=== PATIENT | female | born 1955 | race Two or more races ===

== ENCOUNTER 2018-08-02 23:36 | Inpatient (IN) | payer OTHER ==
[~2018-08-02] VITALS: Ht 167.6 cm; Wt 87.4 kg
[2018-08-03] MEDS ORDERED: SODIUM CHLORIDE 0.9% 500 ML IV ONE ×2 (00:03→01:15)
[2018-08-03 00:20] LABS: Basophils # (auto) 0.1 uL; Basophils % (auto) 0.7 % (0.0-2.0); Eosinophils # (auto) 1.6 uL; Hematocrit 38.1 % (36.0-46.0); Hemoglobin 12.2 g/dL (12.2-16.2); Lymphocytes # (auto) 6.6 uL; Lymphocytes % (auto) 46.2 % (10.0-50.0); Mean Corpuscular Hemoglobin 32.1 pg (28.0-32.0); Mean Corpuscular Volume 100.5 fL (80.0-100.0); Monocytes % (auto) 6.9 % (0.0-12.0); Neutrophils % (auto) 35.2 % (37.0-80.0); Nucleated Red Blood Cells % 0.1 %; Platelet Count (auto) 534 10^3/uL (140-450); Red Blood Cells 3.79 10^6/uL (4.0-5.20); Red Cell Distribution Width 13.6 % (11.8-14.3); White Blood Cell 14.3 10^3/uL (4.4-10.8)
[2018-08-03 00:39] LABS: INR 0.88 (0.9-1.15); Partial Thromboplastin Time 25.7 sec (23.78-33.04); Prothrombin Time 9.5 sec (9.27-12.13)
[2018-08-03 00:45] LABS: Albumin 2.9 g/dL (3.4-5.0); Anion Gap 17 (5-15); Blood Urea Nitrogen 45 mg/dL (7-18); Calcium 8.3 mg/dL (8.5-10.1); Carbon Dioxide 16 mmol/L (21-32); Chloride 108 mmol/L (98-107); Magnesium 2.5 mg/dL (1.6-2.6); Potassium 3.7 mmol/L (3.5-5.1); Sodium 141 mmol/L (136-145)
[2018-08-03] MEDS ORDERED: LEVOFLOXACIN 500MG 100 ML IV ONE (00:45)
[2018-08-03 00:47] LABS: Alanine Aminotransferase 67 U/L (13-56); Aspartate Aminotransferase 117 U/L (15-37); Bilirubin, Total 0.2 mg/dL (0.2-1.0); GFR African American 14 mL/min; GFR Non-African American 12 mL/min; Total Protein 6.5 g/dL (6.4-8.2)
[2018-08-03 00:50] LABS: BUN/Creatinine Ratio 11.2
[2018-08-03 00:52] LABS: Glucose 578 mg/dL (74-106)
[2018-08-03 00:54] LABS: Alkaline Phosphatase 146 U/L (45-117)
[2018-08-03] MEDS ORDERED: DOPamine 1600MCG/ML D5W 250 ML IV ONE ×2 (01:15→04:28)
[2018-08-03] MEDS ORDERED: InsuLIN REG 1unit/0.01ml Soln (100units/ml) IV ONE (01:15)
[2018-08-03] MEDS ORDERED: InsuLIN R (HUMAN) 100 UNITS in SODIUM CHL 0.9% 99 ML IV SCH (03:01)
[2018-08-03] MEDS ORDERED: DEXTROSE (50%) 50ML SYRG IV PRN ×2 (03:15)
[2018-08-03] MEDS ORDERED: CALCIUM CHL 100MG/ML 500 MG in D5W 5% 100 ML IV ONE (03:15)
[2018-08-03] MEDS ORDERED: ACCU-CHEK COMFORT CURVE STRIP VI SCH ×2 (04:30→06:00)
[2018-08-03 05:11] LABS: Urine Bacteria MANY /hpf (None Seen); Urine Blood TRACE /uL (Negative); Urine Mucus FEW (None Seen); Urine WBC 15 /hpf (0 - 5); Urine WBC Clumps PRESENT /hpf (None Seen)
[2018-08-03 05:26] LABS: Calcium 8.5 mg/dL (8.5-10.1); Potassium 4.3 mmol/L (3.5-5.1)
[2018-08-03 05:26] LABS: Alcohol, Urine < 3.0 mg/dL (0-5); Amphetamine Screen, Urine NEGATIVE (NEGATIVE); Barbiturate Scree,Urine NEGATIVE (NEGATIVE); Benzodiazephine Screen, Urine NEGATIVE (NEGATIVE); Cannabinoid Screen, Urine NEGATIVE (NEGATIVE); Cocaine Screen, Urine NEGATIVE (NEGATIVE); Opiate Scree,Urine NEGATIVE (NEGATIVE); Phencyclidine Screen, Urine NEGATIVE (NEGATIVE)
[2018-08-03 05:28] LABS: BUN/Creatinine Ratio 15.7
[2018-08-03 05:57] LABS: Blood Alcohol < 3.0 mg/dL (0-5)
[2018-08-03 06:23] LABS: Lactic Acid w/Reflex 2.5 mmol/L (0.4-2.0)
[2018-08-03] MEDS: InsuLIN REG 1unit/0.01ml Soln (100units/ml) SC SCH ×5 (06:58→22:11)
[2018-08-03] MEDS: DOPamine 1600MCG/ML D5W 250 ML IV SCH ×2 (07:00→21:00)
[2018-08-03] MEDS: cefTRIAXone 1GM/50ML D5W 50 ML IV SCH (08:09)
[2018-08-03] MEDS: cloNIDine HCL 0.1 MG TAB PO PRN ×2 (08:09→22:11)
[2018-08-03] MEDS ORDERED: ISOS1TAB PO (11:06)
[2018-08-03] MEDS ORDERED: FENO1TAB42 PO (11:06)
[2018-08-03] MEDS ORDERED: ISOS5TAB20 PO (11:06)
[2018-08-03] MEDS ORDERED: B-COTAB10 PO (11:06)
[2018-08-03] MEDS ORDERED: FURO40TA PO (11:06)
[2018-08-03] MEDS ORDERED: FERR-20 PO (11:07)
[2018-08-03] MEDS ORDERED: NIFE90TA30 PO (11:07)
[2018-08-03] MEDS ORDERED: RANI1TAB6 PO (11:09)
[2018-08-03] MEDS ORDERED: INSLANTI SC (11:09)
[2018-08-03] MEDS ORDERED: INSUINJ18 SC (11:13)
[2018-08-03] MEDS ORDERED: ASPirin 81 mg TAB PO ONE (12:15)
[2018-08-03 13:03] LABS: Cholesterol 167 mg/dL (< 200); HDL Cholesterol 57 mg/dL (40-59); LDL Cholesterol 98 mg/dL (< 100); Triglycerides 88 mg/dL (< 150)
[2018-08-03] MEDS: ACCU-CHEK COMFORT CURVE STRIP VI SCH ×2 (18:05→22:11)
[2018-08-04 05:46] LABS: Basophils # (auto) 0 uL; Basophils % (auto) 0.6 % (0.0-2.0); Hematocrit 34.5 % (36.0-46.0); Hemoglobin 11.8 g/dL (12.2-16.2); Lymphocytes % (auto) 27.9 % (10.0-50.0); Mean Corpuscular Hemoglobin 32.8 pg (28.0-32.0); Mean Corpuscular Hgb Conc. 34.2 g/dL (32.0-36.0); Mean Corpuscular Volume 96.1 fL (80.0-100.0); Monocytes # (auto) 0.7 uL; Monocytes % (auto) 9.2 % (0.0-12.0); Neutrophils # (auto) 3.6 uL; Neutrophils % (auto) 49.3 % (37.0-80.0); Platelet Count (auto) 410 10^3/uL (140-450); Red Blood Cells 3.59 10^6/uL (4.0-5.20); White Blood Cell 7.3 10^3/uL (4.4-10.8)
[2018-08-04 05:57] LABS: Albumin 2.6 g/dL (3.4-5.0); BUN/Creatinine Ratio 18.1; Calcium 8.9 mg/dL (8.5-10.1); Potassium 4.3 mmol/L (3.5-5.1)
[2018-08-04 06:01] LABS: Bilirubin, Total 0.2 mg/dL (0.2-1.0); Total Protein 5.9 g/dL (6.4-8.2)
[2018-08-04] MEDS: ACCU-CHEK COMFORT CURVE STRIP VI SCH ×4 (06:22→22:31)
[2018-08-04] MEDS: InsuLIN REG 1unit/0.01ml Soln (100units/ml) SC SCH ×4 (06:22→22:30)
[2018-08-04] MEDS: cefTRIAXone 1GM/50ML D5W 50 ML IV SCH (09:18)
[2018-08-04] MEDS: ASPirin 81 mg TAB PO SCH (10:00)
[2018-08-04] MEDS: cloNIDine HCL 0.1 MG TAB PO PRN (10:31)
[2018-08-04] MEDS: DOPamine 1600MCG/ML D5W 250 ML IV SCH (11:00)
[2018-08-04] MEDS ORDERED: ceFAZolin 1GM/50ML 50 ML IV ONE ×2 (14:00→14:09)
[2018-08-04] MEDS ORDERED: LIDOCAINE 2%HCL (LOCAL ANESTH.) INJ 20ML MDV ONE (14:10)
[2018-08-04] MEDS ORDERED: VANCOMYCIN HCL 1000 MG VL ONE (14:22)
[2018-08-04] MEDS ORDERED: VANCOMYCIN 1GM/250ML 250 ML IV ONE (14:22)
[2018-08-04] MEDS ORDERED: MIDAZOLAM HCL 1MG/1ML-2 ML VIAL ONE (14:25)
[2018-08-04] MEDS ORDERED: fentaNYL CITRATE 100 MCG/2 ML VL ONE (14:25)
--- NOTE | 2018-08-04 16:34 | NUR ---
PT ADMITTED TO FLOOR VIA BED FROM [facility]ER, S/P PACEMAKER. NO DISTRESS NOTED, PT DENIES PAIN AT THIS TIME. NO CALL LIGHT IN ROOM. CALLED PBX, THEY WILL PAGE MAINTENANCE. DRESSING [employer] CHEST CLEAN DR AND INTACT. LA IN SLING WITH ICE PACK. PT ORIENTED TO UNIT. VITALS:98.0, HR 59, RR 19, 02 92, BP 120/66. NO PAIN. WILL CONTINUE TO MONITOR.
[2018-08-04 16:38] VITALS: BP 120/66
--- NOTE | 2018-08-04 18:47 | NUR ---
PT DID NOT RECEIVE DINNER TRAY ON CART, CALLED DIETARY. DIETARY REPORTS THEY WILL SEND A TRAY.
[2018-08-04] MEDS: MORPHINE SULF INJ 2 MG/ML SYRINGE 1ML IV PRN ×2 (18:48→22:28)
[2018-08-04 20:00] VITALS: BP 179/89
[2018-08-04 21:58] VITALS: BP 158/79
[2018-08-04] MEDS: VANCOMYCIN 1GM/250ML 250 ML IV SCH (22:30)
[2018-08-05] MEDS: MORPHINE SULF INJ 2 MG/ML SYRINGE 1ML IV PRN ×2 (02:32→06:32)
--- NOTE | 2018-08-05 02:34 | NUR ---
PT'S LINEN AND GOWN CHANGED;PT PULLED UP. TOLERATED WELL.SLING INTACT;DRSG SITE DRY.
[2018-08-05 04:37] VITALS: BP 145/70
[2018-08-05 04:58] LABS: Basophils # (auto) 0 uL; Basophils % (auto) 0.6 % (0.0-2.0); Eosinophils # (auto) 0.9 uL; Eosinophils % (auto) 11.5 % (0.0-7.0); Hematocrit 36.4 % (36.0-46.0); Hemoglobin 12.2 g/dL (12.2-16.2); Lymphocytes # (auto) 1.8 uL; Lymphocytes % (auto) 23.3 % (10.0-50.0); Mean Corpuscular Hemoglobin 32.5 pg (28.0-32.0); Mean Corpuscular Hgb Conc. 33.6 g/dL (32.0-36.0); Mean Corpuscular Volume 96.7 fL (80.0-100.0); Monocytes # (auto) 0.7 uL; Neutrophils # (auto) 4.3 uL; Neutrophils % (auto) 55.6 % (37.0-80.0); Nucleated Red Blood Cells % 0.1 %; Platelet Count (auto) 420 10^3/uL (140-450); Red Blood Cells 3.77 10^6/uL (4.0-5.20); Red Cell Distribution Width 13.1 % (11.8-14.3); White Blood Cell 7.7 10^3/uL (4.4-10.8)
[2018-08-05 05:32] LABS: Albumin 2.6 g/dL (3.4-5.0); Calcium 8.9 mg/dL (8.5-10.1); Potassium 4.2 mmol/L (3.5-5.1)
[2018-08-05 05:35] LABS: BUN/Creatinine Ratio 20.3; Bilirubin, Total 0.2 mg/dL (0.2-1.0); Total Protein 5.8 g/dL (6.4-8.2)
[2018-08-05] MEDS: ACCU-CHEK COMFORT CURVE STRIP VI SCH ×2 (06:26→14:05)
[2018-08-05] MEDS: InsuLIN REG 1unit/0.01ml Soln (100units/ml) SC SCH ×2 (06:26→14:05)
--- NOTE | 2018-08-05 08:02 | NUR ---
PT RESTING IN BED, NO DISTRESS NOTED, PT DENIES PAIN AT THIS TIME. DRESSING [employer] CHEST CLEAN, DRY AND IN TACT. WILL CONTINUE TO MONITOR.
[2018-08-05 09:00] VITALS: BP 143/73
[2018-08-05] MEDS: cefTRIAXone 1GM/50ML D5W 50 ML IV SCH (09:07)
[2018-08-05] MEDS: ASPirin 81 mg TAB PO SCH (09:08)
[2018-08-05] MEDS: VANCOMYCIN 1GM/250ML 250 ML IV SCH (09:09)
--- NOTE | 2018-08-05 09:21 | NUR ---
ECG DONE PER MD ORDER. EKG READS NSR 61. FEW ABNORMALITIES NOTED, WILL PLACE IN CHART FOR MD REVIEW. PT REPORTS PERSON HAS NOT COME TO LOOK AT PACEMAKER YET, WILL CONTINUE TO MONITOR.
--- NOTE | 2018-08-05 11:00 | NUR ---
SPOKE WITH DR. CLAROS. REPORTS PT CAN FOLLOW UP WITH NEPHROLOGY OUT PATIENT AND FOLLOW UP WITH DR. OCAMPO IN ONE WEEK, AND PT IS TO BE DISCHARGED AFTER [employer] CHECKS PACEMAKER.
--- NOTE | 2018-08-05 12:13 | NUR ---
CALLED [facility] TO HAVE PT PACEMAKER INTERROGATED. [facility] REPORTS THEY WILL HAVE A REP CALL BACK.
[2018-08-05 13:00] VITALS: BP 141/72
--- NOTE | 2018-08-05 14:15 | NUR ---
[employer] CAME TO NURSING STATION AND REPORTED PT PACEMAKER WORKING. WILL DISCHARGE.
[2018-08-05 15:08] VITALS: BP 141/72
--- NOTE | 2018-08-05 16:00 | NUR ---
Discharge instructions given as ordered. Encourage to follow up with PMD, Dr. Rehman, and Dr. Vasquez as instructed. All questions and concerns addressed. Patient verbalized understanding. Medication reconciliation form completed and copy given to patient. IV removed with catheter intact, pressure dressing applied. Telemetry unit returned to ICU. Patient taken to vehicle via wheelchair with all personal belongings, accompanied by staff and son. No distress noted at time of departure.
== END 2018-08-05 16:00 | disposition home or self-care (01) | DRG 853 ==
LOC: ER 23:36 → EDBD 23:36 → TELE 08-03 03:12 → TELE-CENTR 08-04 16:26
PROVIDERS: ADMIT Nurse Practitioner Family; ATTEND Family Medicine
PROC: 0JH606Z Insertion of Pacemaker, Dual Chamber into Chest Subcutaneous Tissue and Fascia, Open Approach (ICD-10-PCS; principal; 2018-08-04)
PROC: 02H63JZ Insertion of Pacemaker Lead into Right Atrium, Percutaneous Approach (ICD-10-PCS; 2018-08-04)
PROC: 02HK3JZ Insertion of Pacemaker Lead into Right Ventricle, Percutaneous Approach (ICD-10-PCS; 2018-08-04)
DX: A41.9 Sepsis, unspecified organism (principal); E11.10 Type 2 diabetes mellitus with ketoacidosis without coma; I44.2 Atrioventricular block, complete; N39.0 Urinary tract infection, site not specified; N18.5 Chronic kidney disease, stage 5; I12.0 Hypertensive chronic kidney disease with stage 5 chronic kidney disease or end stage renal disease; I95.9 Hypotension, unspecified; R55 Syncope and collapse; R00.1 Bradycardia, unspecified; J40 Bronchitis, not specified as acute or chronic; E11.22 Type 2 diabetes mellitus with diabetic chronic kidney disease; E66.9 Obesity, unspecified; Z68.31 Body mass index [BMI] 31.0-31.9, adult; Z79.4 Long term (current) use of insulin; Z79.899 Other long term (current) drug therapy
CPT/HCPCS: 36415; 70450; 71045; 80048; 80053; 80061; 80307; 80320; 81001; 82010; 82140; 82962; 83036; 83605; 83735; 83880; 84443; 84484; 85025; 85610; 85730; 86850; 86900; 86901; 87040; 87086; 93005; 93306; 93886; 94761; 96361; 96365; 96375; G0378; J0690; J0696; J1815; J2250; J7060

== ENCOUNTER 2022-04-20 04:51 | Emergency (ER) | payer OTHER ==
[~2022-04-20] VITALS: Ht 160 cm; Wt 89.9 kg
[~2022-04-20 04:51] MED LIST: B-COTAB10 PO; FENO145T27 PO; FERR-20 PO; FURO1TAB31 PO; INSLANTI SC; INSUINJ18 SC; ISOS1TAB PO; ISOS5TAB20 PO; NIFE90TA49 PO; RANI-435 PO
[2022-04-20 05:32] VITALS: BP 154/97
== END 2022-04-20 07:10 | disposition left against medical advice (07) ==
LOC: ER 04:57
DX: H11.32 Conjunctival hemorrhage, left eye (principal); E11.9 Type 2 diabetes mellitus without complications; I10 Essential (primary) hypertension

== ENCOUNTER 2022-12-10 01:27 | Inpatient (IN) | payer OTHER ==
[~2022-12-10] VITALS: Ht 160 cm; Wt 187.0 kg
[~2022-12-10 01:27] MED LIST changes: -FERR-20 PO; +FERR325T24 PO; -NIFE90TA49 PO; +NIFE90TA75 PO
[2022-12-10 02:48] LABS: Hemoglobin 12.1 g/dL (12.2-16.2); Lymphocytes # (auto) 1.7 10 ^3/uL (0.4-5.4); Neutrophils # (auto) 4.8 10 ^3/uL (1.6-8.6); White Blood Cell 7.5 10^3/uL (4.4-10.8)
[2022-12-10 02:52] LABS: Basophils # (auto) 0.1 10 ^3/uL (0-0.2); Basophils % (auto) 1.3 % (0.0-2.0); Eosinophils # (auto) 0.3 10 ^3/uL (0-0.8); Eosinophils % (auto) 4.6 % (0.0-7.0); Hematocrit 37.9 % (36.0-46.0); Lymphocytes % (auto) 23.3 % (10.0-50.0); Mean Corpuscular Hemoglobin 32.4 pg (28.0-32.0); Mean Corpuscular Volume 101.1 fL (80.0-100.0); Monocytes # (auto) 0.5 10 ^3/uL (0-1.3); Monocytes % (auto) 7.2 % (0.0-12.0); Neutrophils % (auto) 63.6 % (37.0-80.0); Red Blood Cells 3.75 10^6/uL (4.0-5.20); Red Cell Distribution Width 14.6 % (11.8-14.3)
[2022-12-10 02:54] LABS: Alanine Aminotransferase 15 U/L (7-40); Albumin 3.9 g/dL (3.2-4.8); Alkaline Phosphatase 93 U/L (46-116); Anion Gap 6.3 (5-15); Aspartate Aminotransferase 14 U/L (13-40); BUN/Creatinine Ratio 11.7 (10.0-20.0); Blood Urea Nitrogen 59 mg/dL (9-23); Calcium 9.2 mg/dL (8.7-10.4); Carbon Dioxide 19.7 mmol/L (20-30); Chloride 111 mmol/L (98-107); Glucose 178 mg/dL (74-106); Magnesium 1.9 mg/dL (1.6-2.6); Potassium 5.1 mmol/L (3.5-5.1); Sodium 137 mmol/L (136-145)
[2022-12-10 02:55] LABS: Bilirubin, Total 0.3 mg/dL (0.2-1.0); Total Protein 6.3 g/dL (5.7-8.2)
[2022-12-10 07:00] VITALS: TEMP 98.6
[2022-12-10 07:35] VITALS: O2SAT 98
[2022-12-10 09:37] LABS: Urine Bacteria NONE SEEN /hpf (None Seen); Urine Blood Negative /uL (Negative); Urine Clarity Clear (Clear); Urine Protein, UAD 2+ (Negative); Urine Specific Gravity 1.009 (1.001-1.035); Urine Urobilinogen Normal (Negative); Urine WBC <1 /hpf (0 - 5); Urine pH 6.5 (5.0-8.0)
[2022-12-10 09:39] LABS: Urine Color Straw (Yellow)
[2022-12-10] MEDS ORDERED: METOPROLOL TARTRATE 25 MG TAB PO SCH (12:00)
[2022-12-10] MEDS ORDERED: HYDROcodone-ACET 5/325MG TAB PO PRN (12:00)
[2022-12-10] MEDS ORDERED: hydrALAZINE HCL 20 MG/ML VL IV PRN (12:00)
[2022-12-10] MEDS ORDERED: MORPHINE SULFATE INJ 2 MG/ml SYRG IV PRN (12:00)
[2022-12-10] MEDS ORDERED: DEXTROSE (50%) 50ML SYRG IV PRN (12:00)
[2022-12-10] MEDS ORDERED: ASPirin 325 MG TAB PO ONE (12:15)
[2022-12-10] MEDS ORDERED: FUROSEMIDE 40 MG/4 ML VIAL IV ONE (16:45)
[2022-12-10 17:00] VITALS: BP 130/67; PULSE 69; RESP 18; O2SAT 97
[2022-12-10] MEDS ORDERED: ACCU-CHEK COMFORT CURVE STRIP VI SCH (17:00)
[2022-12-10] MEDS ORDERED: InsuLIN REG 1unit/0.01ml Soln (100units/ml) SC SCH ×2 (17:00→22:00)
[2022-12-11] MEDS ORDERED: NIFEdipine ER 30 MG TAB PO SCH (10:00)
== END 2022-12-10 17:34 | disposition left against medical advice (07) | DRG 304 ==
LOC: ER 01:30 → TELE 11:55
PROVIDERS: ADMIT Internal Medicine; ATTEND Internal Medicine
DX: I16.0 Hypertensive urgency (principal); N18.6 End stage renal disease; I24.8 Other forms of acute ischemic heart disease; R07.89 Other chest pain; Z53.29 Procedure and treatment not carried out because of patient's decision for other reasons; I12.0 Hypertensive chronic kidney disease with stage 5 chronic kidney disease or end stage renal disease; K21.9 Gastro-esophageal reflux disease without esophagitis; D63.1 Anemia in chronic kidney disease; E11.22 Type 2 diabetes mellitus with diabetic chronic kidney disease; G47.00 Insomnia, unspecified; Z95.0 Presence of cardiac pacemaker; Z99.2 Dependence on renal dialysis
CPT/HCPCS: 36415; 71045; 80053; 81001; 82962; 83735; 83880; 84484; 85025; 93005; 99291; G0378